=== PATIENT | male | born 1990 | race Hispanic/Latino ===

== ENCOUNTER 2023-04-18 09:36 | Emergency (ER) | payer OTHER ==
[~2023-04-18] VITALS: Ht 190.5 cm; Wt 104.3 kg
[2023-04-18 09:42] VITALS: BP 110/81; PULSE 81; RESP 16; O2SAT 99
[2023-04-18] MEDS ORDERED: TETANUS/DIPHTHERIA TOXOID [ADULT] 0.5 ML VIAL IM ONE (10:00)
== END 2023-04-18 11:08 | disposition home or self-care (01) ==
LOC: EDH 09:36
DX: S61.412A Laceration without foreign body of left hand, initial encounter (principal); X58.XXXA Exposure to other specified factors, initial encounter; Y93.89 Activity, other specified; Y92.89 Other specified places as the place of occurrence of the external cause; Y99.8 Other external cause status
CPT/HCPCS: 12002; 90471; 90714